=== PATIENT | male | born 1935 | race Caucasian/White ===

== ENCOUNTER 2016-12-22 12:09 | Day surgery (SDC) | payer MEDICARE, OTHER ==
--- NOTE | ~2016-12-22 | EGD ---
EGD REPORT [facility] [address] [place]. [address] NAME: SHI CANNON : 37 STATUS : [facility] [place] PAT#: [id number] AGE: 81 ADM/REG DATE : 12/22/16 MR#: [id number] REPORT SERV DATE: 12/22/16 DICTATED BY: ESTELLE STEWART DATE: 12/22/16 REPORT STATUS : Draft TRANS[facility]IBED BY: [facility] DATE: 12/22/16 End[facility] Center Patient Name: Shi Cannon Date of : 1935 Attending MD: DORY STEWART MD Procedure Date No Time: 12/22/2016 Procedure: Upper GI endoscopy Indications: Surveillance for malignancy due to personal history of premalignant condition, F/U duodenal lymphoma Referring MD: VANDANA GIRALDO Medicines: See the Anesthesia note for documentation of the administered medications Complications: No immediate complications. Estimated blood loss: Minimal. Procedure: Pre-Anesthesia Assessment: - ASA Grade Assessment: III - A patient with severe systemic disease. - Prior to the procedure, a History and Physical was performed, and patient medications and allergies were reviewed. The patient's tolerance of previous anesthesia was also reviewed. The risks and benefits of the procedure and the sedation options and risks were discussed with the patient. All questions were answered, and informed consent was obtained. Prior Anticoagulants: The patient has taken no previous anticoagulant or antiplatelet agents. After reviewing the risks and benefits, the patient was deemed in satisfactory condition to undergo the procedure. After obtaining informed consent, the endoscope was passed under direct vision. Throughout the procedure, the patient's blood pressure, pulse, and oxygen saturations were monitored continuously. The GIF [id number] was introduced through the mouth, and advanced to the third part of duodenum. The upper GI endoscopy was accomplished without difficulty. The patient tolerated the procedure well. Findings: The 3rd part of the duodenum was normal. Diffuse nodular mucosa was found in the second part of the duodenum. Biopsies were taken with a cold forceps for histology. Diffuse moderate inflammation characterized by congestion (edema) and erythema was found in the gastric antrum. Biopsies were taken with a cold forceps for histology. The cardia and gastric fundus were normal on retroflexion. EGD REPORT [address] [address] NAME: SHI CANNON : [birth year] STATUS : [facility] [place] PAT#: [id number] AGE: 81 ADM/REG DATE : 12/22/16 MR#: [id number] REPORT SERV DATE: 12/22/16 DICTATED BY: ESTELLE STEWART DATE: 12/22/16 REPORT STATUS : Draft TRANSCRIBED BY: [employer] DATE: 12/22/16 The examined esophagus was normal. Impression: - Normal 3rd part of the duodenum. - Nodular mucosa at 2nd part of the duodenum. Biopsied. - Gastritis. Biopsied. - Normal esophagus. Recommendation: - Patient has a contact number available for emergencies. The signs and symptoms of potential delayed complications were discussed with the patient. Return to normal activities tomorrow. Written discharge instructions were provided to the patient. - Regular diet. - Discharge patient to home. - Continue present medications. - Await pathology results. Procedure Code(s): --- Professional --- 30197, Esophagogastroduodenoscopy, flexible, transoral; with biopsy, single or multiple Diagnosis Code(s): --- Professional --- K31.9, Disease of stomach and duodenum, unspecified K29.70, Gastritis, unspecified, without bleeding Z87.19, Personal history of other diseases of the digestive system CPT copyright 2013 [employer]. All rights reserved. The codes documented in this report are preliminary and upon assembly manager review may be revised to meet current compliance requirements. DORY STEWART MD 12/22/2016 2:18 PM This report has been signed electronically. Number of Addenda: 0 Note Initiated On: 12/22/2016 1:56 PM Scope Withdrawal Time 0 hours 0 minutes 0 seconds [address] [place] [id number]
[~2016-12-22 12:09] MED LIST: AMB5 PO; ATEN100 PO; CPZ25 PO; DETROLLA4 PO; FLORASTOR250 MG PO; LORT2.5 PO; LOTRISONE EX; MCZ25 PO; MIRALAX POWDER1 PKT PO; NORCO1 TA1 PO; PROTONIX PO; REFRESH1 % OP; REG5 PO; TEARS PURE OPH; TENORETIC1 TA1 PO; VESICARE; VESICARE10 MG PO; ZANTAC150 MG PO; ZOFRAN4 PO
== END 2016-12-22 23:59 | disposition home or self-care (01) ==
LOC: DMU 12:09
PROVIDERS: Internal Medicine Gastroenterology
PROC: 0DB68ZX Excision of Stomach, Via Natural or Artificial Opening Endoscopic, Diagnostic (ICD-10-PCS; 2016-12-22)
PROC: 0DB98ZX Excision of Duodenum, Via Natural or Artificial Opening Endoscopic, Diagnostic (ICD-10-PCS; principal; 2016-12-22 14:30)
DX: C82.93 Follicular lymphoma, unspecified, intra-abdominal lymph nodes (principal); K29.50 Unspecified chronic gastritis without bleeding; K31.9 Disease of stomach and duodenum, unspecified; I25.2 Old myocardial infarction; K21.9 Gastro-esophageal reflux disease without esophagitis; F41.9 Anxiety disorder, unspecified; I10 Essential (primary) hypertension; Z90.49 Acquired absence of other specified parts of digestive tract; Z87.19 Personal history of other diseases of the digestive system; Z98.890 Other specified postprocedural states; Z79.899 Other long term (current) drug therapy; Z98.41 Cataract extraction status, right eye; Z98.42 Cataract extraction status, left eye; Z85.46 Personal history of malignant neoplasm of prostate
CPT/HCPCS: 88305; 88341; 88342